=== PATIENT | female | born 1945 | race African-American/Black ===

== ENCOUNTER → 2017-04-18 | Outpatient (CLI) | payer OTHER ==
--- NOTE | ~2017-04-18 | S ---
[facility] [place] [address] SURGICAL PATH RPT PROCEDURE Name: MICHAEL TOLLIVER Room #: REG CHARLIE Jeff.#: [id number] Admission: 04/18/17 Date of : 47 Discharge: Report #: [id number] Path Case #: [id number] PATHOLOGY REPORT COLLECTION DATE: 04/18/2017 RECEIVED DATE: 04/18/2017 SUBMITTING PHYS: Dr. David Marcus OTHER PHYS: Dr. 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 - No definite invasive carcinoma present. COMMENT: ER and GA markers are ordered on block A1, and the results of these will be reported in a separate scanned image to follow. Please see separate report. Co-review: Dr. Francis Smith Findings of this case are telephoned to Ms. Casper at [facility] at approximately 10:00 a.m. on 04/21/17. (IUV:mgr; 04/21/2017) PATHOLOGIST: Renate German M.D. REPORT ELECTRONICALLY SIGNED BY: Renate German M.D. DATE/TIME: 04/21/2017 15:49 * * * * * * * * * * * * GROSS PATHOLOGY: Received in formalin labeled "Michael Tolliver," and additionally labeled on the requisition as, "right lateral central". Received are multiple needle cores of yellow-rhoades fibrofatty tissue measuring 2.2 x 2.0 x 0.4 cm in aggregate dimensions. Also received is a plastic cassette containing multiple cores of yellow-rhoades fibrofatty tissue measuring 2.5 x 2.0 x 0.4 cm in aggregate dimensions. The tissue in the cassette is transferred to cassette A1, and the remaining tissue is submitted in its entirety in cassette A2 and A3. The cold ischemic time is 5 minutes. The total formalin fixation time is 12 hours. (CAA; 04/18/2017) [facility] [place] [address] SURGICAL PATH RPT PROCEDURE Name: SYLVESTER TOLLIVERWINNIE Room #: REG [facility].#: [id number] Admission: 04/18/17 Date of : 47 Discharge: Report #: [id number] Path Case #: [id number] CLINICAL HISTORY: Right breast calcifications INITIAL CPT CODE(S): A; 27177, 86179(2) Professional services performed by [facility] at [facility] [address] [place] [address] Technical services performed by [facility] at [address] [place] [address], [facility] [address] [address]. PROCEDURE REPORT (Order Date: 04/23/2017 00:00) COMMENT: Quantitative image analysis was performed on block A1. Please see next page for scanned image of results. ([facility] 04/25/2017) PATHOLOGIST: Renate German M.D. REPORT ELECTRONICALLY SIGNED BY: Renate German M.D. DATE/TIME: 04/28/2017 09:50 [facility] [address] [place] [address] PHONE: [phone] DIRECTOR: Liam Cruz M.D. * * * END OF REPORT * * *
== END | disposition home or self-care (01) ==
LOC: RAD 04-15 11:40
DX: D05.11 Intraductal carcinoma in situ of right breast (principal)

== ENCOUNTER → 2017-05-12 | Outpatient (CLI) | payer OTHER ==
[2017-05-12 11:47] LABS: CREATININE 0.8 mg/dL (0.6-1.0)
== END ==
LOC: LABMALL 11:09
PROVIDERS: Internal Medicine Hematology & Oncology
DX: R92.8 Other abnormal and inconclusive findings on diagnostic imaging of breast (principal); Z85.3 Personal history of malignant neoplasm of breast